=== PATIENT | male | born 1955 | race African-American/Black ===

== ENCOUNTER 2018-05-17 16:30 | Emergency (ER) | payer MEDICAID ==
[~2018-05-17] VITALS: Ht 180.3 cm; Wt 113.4 kg
--- NOTE | 2018-05-17 17:00 | NUR ---
AMARI SI ROLL THROUGH TRAFFIC WITH HIS WHEELCHAIR, HEARING VOICES. PT SEEN & EVAL'D BY DR. PAREDES. PT CALM & COOPERATIVE, NAD NOTED @ THIS TIME.
[2018-05-17] MEDS ORDERED: KETOROLAC TROMETHAMINE INJ 30 MG/ML VIAL ONE (17:13)
[2018-05-17] MEDS: KETOROLAC TROMETHAMINE INJ 30 MG/ML VIAL IM ONE (17:52)
[2018-05-17 18:30] LABS: BASOPHILS # (AUTO) 0.1 /CMM (0.0-0.2); BASOPHILS % (AUTO) 0.6 % (0.0-2.0); EOSINOPHILS % (AUTO) 1.5 % (0.0-6.0); HEMATOCRIT 33 % (39-51); LYMPHOCYTES # (AUTO) 2.4 /CMM (0.8-4.8); LYMPHOCYTES % (AUTO) 27.8 % (20.0-44.0); MEAN CORPUSCULAR HEMOGLOBIN 27 PG (26.0-33.0); MEAN CORPUSCULAR HGB CONC 34 g/dl (31.0-36.0); MEAN CORPUSCULAR VOLUME 79 fL (80-96); MONOCYTES # (AUTO) 0.8 /CMM (0.1-1.30); MONOCYTES % (AUTO) 9.9 % (2.0-12.0); NEUTROPHILS # (AUTO) 5.1 /CMM (1.8-8.9); NEUTROPHILS % (AUTO) 60.2 % (43.0-81.0); PLATELET COUNT (AUTO) 217 /CMM (150-450); RED BLOOD CELL COUNT(AUTO) 4.13 MIL/uL (4.5-6.0); WHITE BLOOD COUNT (AUTO) 8.5 K/uL (4.3-11.0)
[2018-05-17 18:44] LABS: ALBUMIN 3.3 g/dL (3.4-5.0); BILIRUBIN,DIRECT 0.1 mg/dL (0.0-0.2); BILIRUBIN,TOTAL 0.3 mg/dL (0.2-1.0); CALCIUM, SERUM 8.6 mg/dL (8.5-10.1); CREATININE 0.6 mg/dL (0.6-1.3); POTASSIUM 3.7 mmol/L (3.5-5.1); SALICYLATE 3.6 mg/dL (2.8-20.0); TOTAL PROTEIN, SERUM 7.1 g/dL (6.4-8.2)
--- NOTE | 2018-05-17 19:00 | NUR ---
Patient is resting comfortably in bed with eyes closed. Easily aroused. VSS
[2018-05-17 20:57] LABS: APPEARANCE,URINE Clear (CLEAR); BILIRUBIN,URINE Negative (NEGATIVE); BLOOD, URINE Negative Ery/uL (NEGATIVE); COLOR,URINE Yellow (YELLOW); KETONES,URINE Trace (NEGATIVE); LEUKOCYTE ESTERASE ,URINE Negative (NEGATIVE); NITRITE, URINE Negative (NEGATIVE); PH,URINE 5.5 (5.0-8.0); PROTEIN,URINE Trace mg/dl (NEGATIVE); UGLUCOSE Negative (NEGATIVE); UROBILINOGEN,URINE 0.2 EU/dL (0.2)
[2018-05-17 21:00] LABS: BACTERIA,URINE Few /HPF (None Seen); MUCUS,URINE Few /LPF (None Seen); RBC,URINE 0-2 /HPF (0-2); SQUAMOUS EPITHELIAL CELL,UR Rare /HPF (None Seen); WBC,URINE 0-2 /HPF (0-3)
--- NOTE | 2018-05-17 21:30 | NUR ---
Patient is resting comfortably in bed with eyes closed. Easily aroused. VSS
--- NOTE | 2018-05-17 23:34 | NUR ---
REPORT GIVEN TO CHRIS FERGUSON @ [facility].
--- NOTE | 2018-05-17 23:40 | NUR ---
CALLED [facility] FOR TRANSPORT ETA OF 0025 WAS GIVEN. TRIP#[id number]
--- NOTE | 2018-05-18 00:28 | NUR ---
REPORT GIVEN TO [facility] PERSONNEL. DENIES ANY MEDICLA C/O AT THIS TIME. RESP EVEN AND UNLABORED. TO BE TRANSPORTED TO [facility] [place].
[2018-05-18 00:29] VITALS: BP 134/77
== END 2018-05-17 23:43 | disposition short-term general hospital (02) ==
LOC: ER 16:33
DX: R45.851 Suicidal ideations (principal); R60.9 Edema, unspecified
CPT/HCPCS: 36415; 80048-TC; 80076-TC; 80305; 81000-TC; 85025-TC; A4606; G0480; J1885; J7030; L0172; Z7610

== ENCOUNTER 2018-06-30 02:23 | Emergency (ER) | payer MEDICAID ==
[~2018-06-30] VITALS: Ht 165.1 cm; Wt 88.5 kg
[2018-06-30 02:51] LABS: BASOPHILS % (AUTO) 0.3 % (0.0-2.0); EOSINOPHILS % (AUTO) 1.8 % (0.0-6.0); HEMATOCRIT 32 % (39-51); HEMOGLOBIN 10.2 g/dL (13.5-17.5); LYMPHOCYTES # (AUTO) 2.7 /CMM (0.8-4.8); LYMPHOCYTES % (AUTO) 38.8 % (20.0-44.0); MEAN CORPUSCULAR HGB CONC 32 g/dl (31.0-36.0); MEAN CORPUSCULAR VOLUME 83 fL (80-96); MONOCYTES # (AUTO) 0.6 /CMM (0.1-1.30); MONOCYTES % (AUTO) 9.3 % (2.0-12.0); NEUTROPHILS # (AUTO) 3.4 /CMM (1.8-8.9); NEUTROPHILS % (AUTO) 49.8 % (43.0-81.0); PLATELET COUNT (AUTO) 268 /CMM (150-450); RDW COEFFICIENT OF VARIATION 14.6 (11.5-15.0); RED BLOOD CELL COUNT(AUTO) 3.82 MIL/uL (4.5-6.0); WHITE BLOOD COUNT (AUTO) 6.9 K/uL (4.3-11.0)
[2018-06-30 03:07] LABS: ALBUMIN 3.2 g/dL (3.4-5.0); BILIRUBIN,DIRECT 0.1 mg/dL (0.0-0.2); BILIRUBIN,TOTAL 0.2 mg/dL (0.2-1.0); CREATININE 0.5 mg/dL (0.6-1.3); POTASSIUM 3.6 mmol/L (3.5-5.1)
[2018-06-30 03:08] LABS: SALICYLATE 2.4 mg/dL (2.8-20.0)
--- NOTE | 2018-06-30 07:15 | NUR ---
DIMITRI, CLINICIAN AT BEDSIDE
[2018-06-30] MEDS ORDERED: HYDROCODONE/APAP 5/325MG 1 EACH TABLET ONE (07:43)
[2018-06-30] MEDS: HYDROCODONE/APAP 5/325MG 1 EACH TABLET PO ONE (07:47)
--- NOTE | 2018-06-30 07:50 | NUR ---
Patient discharged to home in stable condition. Written and verbal after care instructions given. Patient verbalizes understanding of instruction.
[2018-06-30 08:15] VITALS: BP 139/77
== END 2018-06-30 08:16 | disposition home or self-care (01) ==
LOC: ER 02:26
DX: R45.851 Suicidal ideations (principal); D64.9 Anemia, unspecified; F32.9 Major depressive disorder, single episode, unspecified; I25.2 Old myocardial infarction; I11.0 Hypertensive heart disease with heart failure; I50.9 Heart failure, unspecified; I25.10 Atherosclerotic heart disease of native coronary artery without angina pectoris; Z86.73 Personal history of transient ischemic attack (TIA), and cerebral infarction without residual deficits
CPT/HCPCS: 36415; 80048; 80076; 80329; 85025; 99284; A4606; G0480 ×2; Z7610

== ENCOUNTER 2018-10-15 15:47 | Emergency (ER) | payer MEDICARE, MEDICAID ==
[~2018-10-15] VITALS: Ht 177.8 cm; Wt 104.8 kg
[2018-10-15] MEDS ORDERED: HYDR-4354 PO (16:16)
[2018-10-15] MEDS ORDERED: ACET-868 PO (16:16)
[2018-10-15] MEDS ORDERED: DIVA-78 PO (16:16)
[2018-10-15] MEDS ORDERED: CLON0.1T PO (16:16)
[2018-10-15] MEDS ORDERED: QUET25TA PO (16:16)
[2018-10-15] MEDS ORDERED: BLOO-668 IN (16:16)
[2018-10-15] MEDS ORDERED: DOCU-141 PO (16:16)
[2018-10-15] MEDS ORDERED: AMLO5TAB9 PO (16:16)
[2018-10-15] MEDS ORDERED: BISA10SU8 RC (16:16)
[2018-10-15] MEDS ORDERED: ESCI5TAB PO (16:16)
[2018-10-15] MEDS ORDERED: ACET-2605 PO (16:16)
[2018-10-15] MEDS ORDERED: LORA1TAB PO (16:16)
[2018-10-15] MEDS ORDERED: INSU100V7 SQ (16:16)
[2018-10-15] MEDS ORDERED: CARI350T PO (16:16)
[2018-10-15] MEDS ORDERED: NA P133E RC (16:16)
[2018-10-15] MEDS ORDERED: METF-440 PO (16:16)
[2018-10-15] MEDS ORDERED: SENN-168 PO (16:16)
[2018-10-15] MEDS ORDERED: ASPI-1169 PO (16:16)
--- NOTE | 2018-10-15 16:18 | NUR ---
PT BROUGHT IN BY [facility] FOR HEADACHE X 4 DAYS IN OCCIPITAL AREA RADIATING TO SPINE. NO NOTED WEAKNESS OR DRIFT PT LOGICAL AND CLEAR IN SPEECH. PT STATES HE NORMALLY TAKED NOECO 10/325 AND SOMA. PT HAS NOT TAKEN NORCO SINCE NOON. PT LIVES IN SNF IN [place]. WILL CONTINE TO MONITOR PT WHEEL CHAIR BOUND
[2018-10-15 16:25] LABS: BASOPHILS # (AUTO) 0.1 /CMM (0.0-0.2); HEMATOCRIT 36 % (39-51); HEMOGLOBIN 11.8 g/dL (13.5-17.5); LYMPHOCYTES # (AUTO) 2.2 /CMM (0.8-4.8); MEAN CORPUSCULAR HGB CONC 33 g/dl (31.0-36.0); MEAN CORPUSCULAR VOLUME 78 fL (80-96); MONOCYTES # (AUTO) 0.6 /CMM (0.1-1.30); MONOCYTES % (AUTO) 11.2 % (2.0-12.0); NEUTROPHILS # (AUTO) 2.4 /CMM (1.8-8.9); NEUTROPHILS % (AUTO) 43.8 % (43.0-81.0); PLATELET COUNT (AUTO) 181 /CMM (150-450); RED BLOOD CELL COUNT(AUTO) 4.59 MIL/uL (4.5-6.0); WHITE BLOOD COUNT (AUTO) 5.4 K/uL (4.3-11.0)
[2018-10-15] MEDS ORDERED: IV NS 0.9% 500 ML BAG IV ONE (16:30)
[2018-10-15] MEDS ORDERED: HYDROCODONE/APAP 10/325MG 1 EA TABLET PO ONE (16:30)
[2018-10-15 16:34] LABS: CALCIUM, SERUM 7.9 mg/dL (8.5-10.1); CREATININE 0.6 mg/dL (0.6-1.3); POTASSIUM 3.8 mmol/L (3.5-5.1)
[2018-10-15] MEDS ORDERED: HYDROCODONE/APAP 10/325MG 1 EA TABLET ONE (16:37)
[2018-10-15 17:04] LABS: APPEARANCE,URINE Clear (CLEAR); BILIRUBIN,URINE Negative (NEGATIVE); BLOOD, URINE Negative Ery/uL (NEGATIVE); COLOR,URINE Yellow (YELLOW); KETONES,URINE Trace (NEGATIVE); LEUKOCYTE ESTERASE ,URINE Negative (NEGATIVE); NITRITE, URINE Negative (NEGATIVE); PROTEIN,URINE Trace mg/dl (NEGATIVE); UGLUCOSE Negative (NEGATIVE)
--- NOTE | 2018-10-15 17:17 | NUR ---
PT REFUSED PIV AND FLUIDS MD AWARE PT GIVEN 500 ML WATER TO DRINK MEAL TRAY ORDERED.
--- NOTE | 2018-10-15 17:40 | NUR ---
PT GIVEN MEAL TRAY AND DISCHARGE BACK TO FACILITY PENDING AMBULANCE TRANSPORT
--- NOTE | 2018-10-15 18:16 | NUR ---
CALLED [facility] 2000 TRIP #[id number]
--- NOTE | 2018-10-15 19:20 | NUR ---
RECEIVED REPORT FROM LEXII PEREZ FOR AYESHA
--- NOTE | 2018-10-15 20:12 | NUR ---
[facility] UPDATED ETA 2029 HOURS
--- NOTE | 2018-10-15 20:31 | NUR ---
GAVE REPORT TO [facility] FOR TRANSPORTATION AYESHA
--- NOTE | 2018-10-15 20:32 | NUR ---
CALLED [facility] AND INFORMED CHRISTELLE PEREZ PT IS RETURNING
[2018-10-15 20:44] VITALS: BP 173/68
== END 2018-10-15 20:44 | disposition home or self-care (01) ==
LOC: ER 15:52
DX: R30.0 Dysuria (principal); M54.2 Cervicalgia; I11.0 Hypertensive heart disease with heart failure; I50.9 Heart failure, unspecified; I25.2 Old myocardial infarction; E11.9 Type 2 diabetes mellitus without complications; J44.9 Chronic obstructive pulmonary disease, unspecified; F25.9 Schizoaffective disorder, unspecified; Z86.73 Personal history of transient ischemic attack (TIA), and cerebral infarction without residual deficits; Z79.82 Long term (current) use of aspirin; Z79.84 Long term (current) use of oral hypoglycemic drugs; Z79.4 Long term (current) use of insulin; Z79.899 Other long term (current) drug therapy
CPT/HCPCS: 36415; 80048-TC; 81000-TC; 85025-TC; J7040

== ENCOUNTER → 2018-10-18 | Outpatient (CLI) | payer MEDICARE, MEDICAID ==
[~2018-10-18] MED LIST: ACET-2605 PO; ACET-868 PO; AMLO5TAB9 PO; ASPI-1169 PO; BISA10SU8 RC; BLOO-668 IN; CARI350T PO; CLON0.1T PO; DIVA-78 PO; DOCU-141 PO; ESCI5TAB PO; HYDR-4354 PO; INSU100V7 SQ; LORA1TAB PO; METF-440 PO; NA P133E RC; QUET25TA PO; SENN-168 PO
== END ==
LOC: MSC 10:30
PROVIDERS: ATTEND Anesthesiology
DX: G89.4 Chronic pain syndrome (principal); M51.36 Other intervertebral disc degeneration, lumbar region; M62.830 Muscle spasm of back; M19.012 Primary osteoarthritis, left shoulder; M79.2 Neuralgia and neuritis, unspecified; M54.2 Cervicalgia; M40.299 Other kyphosis, site unspecified; M25.9 Joint disorder, unspecified; Z99.3 Dependence on wheelchair; F20.9 Schizophrenia, unspecified; E11.9 Type 2 diabetes mellitus without complications; I10 Essential (primary) hypertension; F32.9 Major depressive disorder, single episode, unspecified; Z79.891 Long term (current) use of opiate analgesic; Z79.899 Other long term (current) drug therapy

== ENCOUNTER → 2018-11-15 | Outpatient (CLI) | payer MEDICARE, MEDICAID | LOC: MSC 14:45 | PROVIDERS: ATTEND Anesthesiology | DX: G89.4 Chronic pain syndrome (principal); M51.36 Other intervertebral disc degeneration, lumbar region; M79.2 Neuralgia and neuritis, unspecified; M62.830 Muscle spasm of back; M19.012 Primary osteoarthritis, left shoulder; M54.2 Cervicalgia; M25.9 Joint disorder, unspecified; M40.299 Other kyphosis, site unspecified; Z99.3 Dependence on wheelchair; E11.9 Type 2 diabetes mellitus without complications; I10 Essential (primary) hypertension; F20.9 Schizophrenia, unspecified; F32.9 Major depressive disorder, single episode, unspecified ==

== ENCOUNTER 2019-02-24 21:15 | Emergency (ER) | payer MEDICARE, MEDICAID ==
[~2019-02-24] VITALS: Ht 172.7 cm; Wt 95.3 kg
--- NOTE | 2019-02-24 21:50 | NUR ---
CALLED IN [facility], NO ANSWER.
[2019-02-24 22:42] LABS: BASOPHILS # (AUTO) 0.1 /CMM (0.0-0.2); BASOPHILS % (AUTO) 0.9 % (0.0-2.0); EOSINOPHILS % (AUTO) 2.7 % (0.0-6.0); HEMATOCRIT 43 % (39-51); HEMOGLOBIN 14.4 g/dL (13.5-17.5); LYMPHOCYTES % (AUTO) 39.3 % (20.0-44.0); MEAN CORPUSCULAR HGB CONC 33 g/dl (31.0-36.0); MEAN CORPUSCULAR VOLUME 81 fL (80-96); MONOCYTES # (AUTO) 0.7 /CMM (0.1-1.30); MONOCYTES % (AUTO) 9.2 % (2.0-12.0); NEUTROPHILS # (AUTO) 3.7 /CMM (1.8-8.9); NEUTROPHILS % (AUTO) 47.9 % (43.0-81.0); PLATELET COUNT (AUTO) 172 /CMM (150-450); RED BLOOD CELL COUNT(AUTO) 5.34 MIL/uL (4.5-6.0); WHITE BLOOD COUNT (AUTO) 7.6 K/uL (4.3-11.0)
--- NOTE | 2019-02-24 22:44 | NUR ---
PT BIBSELF FOR MEDICAL CLEARANCE, PT STATES HEARING VOICES; PT AAOX4, PT AMBULATORY, VSS, NAD NOTED, PENDING MD JEAN
[2019-02-24 22:49] LABS: CALCIUM, SERUM 8.4 mg/dL (8.5-10.1); CARBON DIOXIDE 26 mmol/L (21-32); CHLORIDE 99 mmol/L (98-107); CREATININE 0.7 mg/dL (0.6-1.3); GLUCOSE 99 mg/dL (74-106); POTASSIUM 4.3 mmol/L (3.5-5.1); SODIUM SERUM 135 mmol/L (136-145); UREA NITROGEN, BLOOD 14 mg/dL (7-18)
[2019-02-24 22:55] LABS: ACETAMINOPHEN 11 ug/ml (10-30); ALANINE AMINOTRANSFERASE 27 U/L (12-78); ALBUMIN 3.6 g/dL (3.4-5.0); ALKALINE PHOSPHATASE 70 U/L (46-116); ASPARTATE AMINOTRANSFERASE 15 U/L (15-37); BILIRUBIN,TOTAL 0.2 mg/dL (0.2-1.0); SALICYLATE 5.7 mg/dL (2.8-20.0)
[2019-02-24 22:56] LABS: ALCOHOL, BLOOD < 3 mg/dL (0-0)
[2019-02-24 23:40] LABS: APPEARANCE,URINE Clear (CLEAR); BILIRUBIN,URINE SMALL (NEGATIVE); BLOOD, URINE Negative Ery/uL (NEGATIVE); COLOR,URINE Yellow (YELLOW); KETONES,URINE 15 (NEGATIVE); LEUKOCYTE ESTERASE ,URINE Negative (NEGATIVE); NITRITE, URINE Negative (NEGATIVE); PH,URINE 6.5 (5.0-8.0); PROTEIN,URINE 30 mg/dl (NEGATIVE); UGLUCOSE Negative (NEGATIVE)
[2019-02-25 00:03] LABS: BACTERIA,URINE None seen /HPF (None Seen); MUCUS,URINE Moderate /LPF (None Seen); RBC,URINE 0-2 /HPF (0-2); SQUAMOUS EPITHELIAL CELL,UR Few /HPF (None Seen); WBC,URINE 0-2 /HPF (0-3)
--- NOTE | 2019-02-25 03:31 | NUR ---
# FOR REPORT. [phone] EXT [phone]
--- NOTE | 2019-02-25 03:40 | NUR ---
[facility] CALLED FOR TRANSPORT. ETA [phone]. TRIP# [id number]
[2019-02-25 04:00] VITALS: BP 139/80
--- NOTE | 2019-02-25 05:54 | NUR ---
REPORT GIVEN TO FAVIOLA PEREZ.
== END 2019-02-25 06:20 | disposition home or self-care (01) ==
LOC: ER 21:18
DX: F29 Unspecified psychosis not due to a substance or known physiological condition (principal); I11.0 Hypertensive heart disease with heart failure; I50.9 Heart failure, unspecified; R56.9 Unspecified convulsions; I25.2 Old myocardial infarction; J44.9 Chronic obstructive pulmonary disease, unspecified; E11.9 Type 2 diabetes mellitus without complications; F25.9 Schizoaffective disorder, unspecified; F12.10 Cannabis abuse, uncomplicated; F11.10 Opioid abuse, uncomplicated; Z79.82 Long term (current) use of aspirin; Z79.4 Long term (current) use of insulin; Z86.73 Personal history of transient ischemic attack (TIA), and cerebral infarction without residual deficits
CPT/HCPCS: 36415; 80048; 80076; 80305; 80307; 80329; 81001; 85025; 99284; G0480; 81000-TC

== ENCOUNTER 2019-04-05 20:23 | Emergency (ER) | payer MEDICARE, MEDICAID ==
[~2019-04-05] VITALS: Ht 175.3 cm; Wt 95.7 kg
[2019-04-05] MEDS ORDERED: HYDROCODONE/APAP 5/325MG 1 EACH TABLET ONE (21:57)
[2019-04-05 22:00] LABS: BASOPHILS % (AUTO) 0.7 % (0.0-2.0); EOSINOPHILS % (AUTO) 3.5 % (0.0-6.0); HEMATOCRIT 32 % (39-51); HEMOGLOBIN 10.6 g/dL (13.5-17.5); MEAN CORPUSCULAR HGB CONC 33 g/dl (31.0-36.0); MEAN CORPUSCULAR VOLUME 81 fL (80-96); MONOCYTES # (AUTO) 0.5 /CMM (0.1-1.30); MONOCYTES % (AUTO) 7.3 % (2.0-12.0); NEUTROPHILS # (AUTO) 2.9 /CMM (1.8-8.9); NEUTROPHILS % (AUTO) 43.5 % (43.0-81.0); PLATELET COUNT (AUTO) 241 /CMM (150-450); RED BLOOD CELL COUNT(AUTO) 3.93 MIL/uL (4.5-6.0); WHITE BLOOD COUNT (AUTO) 6.7 K/uL (4.3-11.0)
[2019-04-05] MEDS ORDERED: HYDROCODONE/APAP 5/325MG 1 EACH TABLET PO ONE (22:00)
--- NOTE | 2019-04-05 22:00 | NUR ---
[address] C/O SI +PLAN TO RUN INTO TRAFFIC -HI, +AUDITORY HALLUCINATIONS. +ETOH. PT AAOX3, CALM & COOPERATIVE AT THIS TIME. DENIES CP, SOB, DIZZINESS, N/V AT THIS TIME. PT SEEN & EVAL BY REGULO SINGLETON. WILL CONT TO MONITOR.
[2019-04-05 22:07] LABS: CALCIUM, SERUM 8.2 mg/dL (8.5-10.1); CREATININE 0.6 mg/dL (0.6-1.3); POTASSIUM 3.9 mmol/L (3.5-5.1)
[2019-04-05 22:23] LABS: ALBUMIN 3.1 g/dL (3.4-5.0); BILIRUBIN,TOTAL 0.1 mg/dL (0.2-1.0); TOTAL PROTEIN, SERUM 6.8 g/dL (6.4-8.2)
[2019-04-05 22:34] LABS: SALICYLATE 1.8 mg/dL (2.8-20.0)
--- NOTE | 2019-04-06 00:39 | NUR ---
urine collected and sent to lab.
[2019-04-06 00:43] LABS: APPEARANCE,URINE Clear (CLEAR); BILIRUBIN,URINE Negative (NEGATIVE); BLOOD, URINE Negative Ery/uL (NEGATIVE); COLOR,URINE Yellow (YELLOW); KETONES,URINE Negative (NEGATIVE); LEUKOCYTE ESTERASE ,URINE Negative (NEGATIVE); NITRITE, URINE Negative (NEGATIVE); PROTEIN,URINE Negative (NEGATIVE); UGLUCOSE Negative (NEGATIVE); UROBILINOGEN,URINE 0.2 EU/dL (0.2)
--- NOTE | 2019-04-06 04:36 | NUR ---
Patient is resting comfortably in bed with eyes closed. Easily aroused. VSS
[2019-04-06 06:23] LABS: CALCIUM, SERUM 8.3 mg/dL (8.5-10.1); CREATININE 0.6 mg/dL (0.6-1.3); POTASSIUM 4.4 mmol/L (3.5-5.1)
--- NOTE | 2019-04-06 08:00 | NUR ---
PATIENT ASLEEP, RESTING COMFORTABLY, NO DISTRESS NOTED. VSS.
[2019-04-06] MEDS ORDERED: IBUPROFEN 600 MG TABLET PO ONE ×2 (15:21→16:00)
--- NOTE | 2019-04-06 15:22 | NUR ---
[facility] ETA 193
--- NOTE | 2019-04-06 15:59 | NUR ---
PT REQUESTED FOR MOTRIN 600MG PO; GIVEN PT MEDS VIA DR. PAREDES VERBAL ORDER
--- NOTE | 2019-04-06 16:32 | NUR ---
SPOKE TO AYESHA PEREZ FOR REPORT
[2019-04-06] MEDS ORDERED: ATENOLOL 50 MG TABLET ONE (16:51)
[2019-04-06] MEDS ORDERED: ATENOLOL 50 MG TABLET PO ONE (17:00)
[2019-04-06 17:01] VITALS: BP 179/74
--- NOTE | 2019-04-06 17:42 | NUR ---
PT TRANSPORTD TO [facility] VIA PRIVATE AMBULANCE, PT LEFT IN STABLE CONDITION, VSS, NAD NOTED. ALL PPW GIVEN TO STAFF.
== END 2019-04-06 17:49 | disposition home or self-care (01) ==
LOC: ER 20:24
DX: R45.851 Suicidal ideations (principal); G89.29 Other chronic pain; E11.9 Type 2 diabetes mellitus without complications; I11.0 Hypertensive heart disease with heart failure; I50.9 Heart failure, unspecified; I25.2 Old myocardial infarction; J44.9 Chronic obstructive pulmonary disease, unspecified; Z86.73 Personal history of transient ischemic attack (TIA), and cerebral infarction without residual deficits; Z98.890 Other specified postprocedural states; Z79.899 Other long term (current) drug therapy; Z79.82 Long term (current) use of aspirin; Z79.4 Long term (current) use of insulin; Z79.84 Long term (current) use of oral hypoglycemic drugs
CPT/HCPCS: 36415 ×2; 80048 ×2; 80076; 80307 ×3; 81001; 85025; 99284; G0480; 80305; 81000-TC

== ENCOUNTER 2019-04-25 18:07 | Emergency (ER) | payer MEDICARE, MEDICAID ==
[~2019-04-25] VITALS: Ht 175.3 cm; Wt 100.2 kg
[~2019-04-25 18:07] MED LIST changes: +BISA10SU11 RC; -BISA10SU8 RC
[2019-04-25 19:03] LABS: BASOPHILS # (AUTO) 0.1 /CMM (0.0-0.2); BASOPHILS % (AUTO) 0.9 % (0.0-2.0); EOSINOPHILS % (AUTO) 2.2 % (0.0-6.0); HEMATOCRIT 32 % (39-51); HEMOGLOBIN 10.6 g/dL (13.5-17.5); LYMPHOCYTES # (AUTO) 2.1 /CMM (0.8-4.8); LYMPHOCYTES % (AUTO) 36.6 % (20.0-44.0); MEAN CORPUSCULAR HGB CONC 34 g/dl (31.0-36.0); MEAN CORPUSCULAR VOLUME 82 fL (80-96); MONOCYTES # (AUTO) 0.5 /CMM (0.1-1.30); MONOCYTES % (AUTO) 8.3 % (2.0-12.0); PLATELET COUNT (AUTO) 175 /CMM (150-450); RED BLOOD CELL COUNT(AUTO) 3.84 MIL/uL (4.5-6.0); WHITE BLOOD COUNT (AUTO) 5.8 K/uL (4.3-11.0)
[2019-04-25 19:16] LABS: CALCIUM, SERUM 8.5 mg/dL (8.5-10.1); CARBON DIOXIDE 23 mmol/L (21-32); CHLORIDE 97 mmol/L (98-107); CREATININE 0.7 mg/dL (0.6-1.3); GLUCOSE 67 mg/dL (74-106); POTASSIUM 3.9 mmol/L (3.5-5.1); SODIUM SERUM 132 mmol/L (136-145); UREA NITROGEN, BLOOD 11 mg/dL (7-18)
[2019-04-25 19:22] LABS: ALANINE AMINOTRANSFERASE 17 U/L (12-78); ALBUMIN 3.4 g/dL (3.4-5.0); ALCOHOL, BLOOD 89 mg/dL (0-0); ALKALINE PHOSPHATASE 78 U/L (46-116); ASPARTATE AMINOTRANSFERASE 13 U/L (15-37); BILIRUBIN,DIRECT 0.1 mg/dL (0.0-0.2); BILIRUBIN,TOTAL 0.2 mg/dL (0.2-1.0); SALICYLATE 2.8 mg/dL (2.8-20.0); TOTAL PROTEIN, SERUM 7.2 g/dL (6.4-8.2)
[2019-04-25 19:23] LABS: ACETAMINOPHEN < 2 ug/ml (10-30)
[2019-04-25 21:19] LABS: APPEARANCE,URINE CLEAR (CLEAR); BILIRUBIN,URINE NEGATIVE (NEGATIVE); BLOOD, URINE NEGATIVE Ery/uL (NEGATIVE); COLOR,URINE YELLOW (YELLOW); KETONES,URINE NEGATIVE (NEGATIVE); LEUKOCYTE ESTERASE ,URINE NEGATIVE (NEGATIVE); NITRITE, URINE NEGATIVE (NEGATIVE); PROTEIN,URINE NEGATIVE (NEGATIVE); UGLUCOSE NEGATIVE (NEGATIVE); UROBILINOGEN,URINE 0.2 EU/dL (0.2)
--- NOTE | 2019-04-25 22:32 | NUR ---
PT WILL BE GOING TO [facility] [place]. [address] [id number]. [address]EPT[address] IS RICH. CALL REPORT [phone]
--- NOTE | 2019-04-25 22:39 | NUR ---
[facility] WAS CALL[facility]. ETA 45 MIN. TRIP# [phone]
--- NOTE | 2019-04-25 23:45 | NUR ---
REPORT GIVEN TO TED AT [facility]
[2019-04-26 00:39] VITALS: BP 120/77
== END 2019-04-26 00:40 | disposition home or self-care (01) ==
LOC: ER 18:09
DX: R07.89 Other chest pain (principal); F31.9 Bipolar disorder, unspecified; F10.20 Alcohol dependence, uncomplicated; R56.9 Unspecified convulsions; G20 Parkinson's disease; I11.0 Hypertensive heart disease with heart failure; I50.9 Heart failure, unspecified; I25.2 Old myocardial infarction; J44.9 Chronic obstructive pulmonary disease, unspecified; E11.9 Type 2 diabetes mellitus without complications; R53.1 Weakness; F25.9 Schizoaffective disorder, unspecified; M54.9 Dorsalgia, unspecified; G89.29 Other chronic pain; Y90.1 Blood alcohol level of 20-39 mg/100 ml; Z86.73 Personal history of transient ischemic attack (TIA), and cerebral infarction without residual deficits; Z98.890 Other specified postprocedural states; Z79.82 Long term (current) use of aspirin; Z79.4 Long term (current) use of insulin
CPT/HCPCS: 36415; 80048; 80076; 80305; 80307 ×2; 80329; 81001; 84484; 85025; 93005; 99284; G0480; 81000-TC

== ENCOUNTER 2019-07-01 23:26 | Emergency (ER) | payer MEDICARE, MEDICAID ==
[~2019-07-01] VITALS: Ht 175.3 cm; Wt 98.4 kg
--- NOTE | 2019-07-01 23:48 | NUR ---
BIB AMBULANCE, PICKED UP FROM [facility], DUE TO CHRONIC PAIN 07/06 FROME NECK DOWN BELOW THE FEET. VITAL SIGNS CHECKED AND RECORDED.
[2019-07-02] MEDS: ACETAMINOPHEN 325 MG TABLET PO ONE ×2 (00:50→01:11)
--- NOTE | 2019-07-02 01:00 | NUR ---
NOTED WITH SOFT STOOL. CLEANED PATIENT ACCORDINGLY. DIAPER CHANGED. KEPT ON BED CLEAN, DRY AND COMFORTABLE.
[2019-07-02] MEDS ORDERED: ACETAMINOPHEN 325 MG TABLET ONE (01:09)
--- NOTE | 2019-07-02 01:11 | NUR ---
PATIENT REFUSED TYLENOL AT THIS TIME.
[2019-07-02 01:29] LABS: BASOPHILS # (AUTO) 0.2 /CMM (0.0-0.2); BASOPHILS % (AUTO) 2.8 % (0.0-2.0); HEMATOCRIT 33 % (39-51); HEMOGLOBIN 10.9 g/dL (13.5-17.5); LYMPHOCYTES # (AUTO) 1.3 /CMM (0.8-4.8); LYMPHOCYTES % (AUTO) 18.4 % (20.0-44.0); MEAN CORPUSCULAR HGB CONC 33 g/dl (31.0-36.0); MEAN CORPUSCULAR VOLUME 82 fL (80-96); MONOCYTES # (AUTO) 0.8 /CMM (0.1-1.30); MONOCYTES % (AUTO) 11.1 % (2.0-12.0); NEUTROPHILS # (AUTO) 4.6 /CMM (1.8-8.9); NEUTROPHILS % (AUTO) 65.7 % (43.0-81.0); PLATELET COUNT (AUTO) 219 /CMM (150-450); RED BLOOD CELL COUNT(AUTO) 4.01 MIL/uL (4.5-6.0)
--- NOTE | 2019-07-02 01:34 | NUR ---
PATIENT FOR UA. PATIENT CLAIMED HE CAN NOT PEE. ENCOURAGED PATIENT TO INCREASE ORAL FLUID INTAKE, WATER AND JUICE PROVIDED.
[2019-07-02 01:35] LABS: CALCIUM, SERUM 8.7 mg/dL (8.5-10.1); CARBON DIOXIDE 24 mmol/L (21-32); CHLORIDE 102 mmol/L (98-107); CREATININE 0.8 mg/dL (0.6-1.3); GLUCOSE 165 mg/dL (74-106); POTASSIUM 3.3 mmol/L (3.5-5.1); SODIUM SERUM 136 mmol/L (136-145); UREA NITROGEN, BLOOD 13 mg/dL (7-18)
[2019-07-02 01:41] LABS: ACETAMINOPHEN 0 ug/ml (10-30); ALANINE AMINOTRANSFERASE 18 U/L (12-78); ALBUMIN 3.5 g/dL (3.4-5.0); ALCOHOL, BLOOD < 3 mg/dL (0-0); ALKALINE PHOSPHATASE 61 U/L (46-116); ASPARTATE AMINOTRANSFERASE 17 U/L (15-37); BILIRUBIN,DIRECT 0.1 mg/dL (0.0-0.2); BILIRUBIN,TOTAL 0.2 mg/dL (0.2-1.0); SALICYLATE 2.2 mg/dL (2.8-20.0); TOTAL PROTEIN, SERUM 7.4 g/dL (6.4-8.2)
--- NOTE | 2019-07-02 01:59 | NUR ---
URINE COLLECTED AND SENT TO LAB
[2019-07-02 02:00] LABS: APPEARANCE,URINE Clear (CLEAR); BILIRUBIN,URINE SMALL (NEGATIVE); BLOOD, URINE Negative Ery/uL (NEGATIVE); COLOR,URINE Dark (YELLOW); KETONES,URINE 40 (NEGATIVE); LEUKOCYTE ESTERASE ,URINE Negative (NEGATIVE); NITRITE, URINE Positive (NEGATIVE); PROTEIN,URINE 30 mg/dl (NEGATIVE); UGLUCOSE Negative (NEGATIVE)
[2019-07-02] MEDS ORDERED: oxyCODONE/APAP (5/325 MG) 1 UDTAB TABLET PO ONE (02:00)
[2019-07-02] MEDS ORDERED: oxyCODONE/APAP (5/325 MG) 1 UDTAB TABLET ONE (02:04)
[2019-07-02 02:17] LABS: RBC,URINE 0-2 /HPF (0-2)
[2019-07-02 02:18] LABS: BACTERIA,URINE Moderate /HPF (None Seen); SQUAMOUS EPITHELIAL CELL,UR Rare /HPF (None Seen); WBC,URINE 0-2 /HPF (0-3)
[2019-07-02] MEDS ORDERED: POTASSIUM CHLORIDE 20 MEQ TAB.PRT.SR PO ONE ×3 (03:38→04:00)
--- NOTE | 2019-07-02 04:28 | NUR ---
PT ACCEPTED TO [facility] BY DR ASENCIO. UNIT 1. # FOR REPORT [phone]
--- NOTE | 2019-07-02 04:30 | NUR ---
[facility] CALLED FOR TRANSPORT. ETA [phone], TRIP # [id number]
[2019-07-02 06:23] VITALS: BP 151/77
--- NOTE | 2019-07-02 07:52 | NUR ---
REPORT GIVEN TO BRAND STRATEGIST.
== END 2019-07-02 08:30 | disposition home or self-care (01) ==
LOC: ER 23:28
DX: R45.851 Suicidal ideations (principal); G89.29 Other chronic pain; F17.200 Nicotine dependence, unspecified, uncomplicated; I11.0 Hypertensive heart disease with heart failure; I50.9 Heart failure, unspecified; I25.2 Old myocardial infarction; J44.9 Chronic obstructive pulmonary disease, unspecified; E11.9 Type 2 diabetes mellitus without complications; Z98.890 Other specified postprocedural states; Z88.8 Allergy status to other drugs, medicaments and biological substances; Z88.6 Allergy status to analgesic agent; Z79.899 Other long term (current) drug therapy; Z79.82 Long term (current) use of aspirin; Z79.4 Long term (current) use of insulin; Z79.84 Long term (current) use of oral hypoglycemic drugs
CPT/HCPCS: 36415; 80048; 80076; 80305; 80307; 80329; 81001; 85025; 87086; 99284; 99406; G0480; 81000-TC